=== PATIENT | female | born 2000 | race Caucasian/White ===

== ENCOUNTER 2022-12-11 02:10 | Emergency (ER) | payer MEDICAID, OTHER ==
[~2022-12-11] VITALS: Ht 178 cm; Wt 99.8 kg
--- NOTE | 2022-12-11 03:30 | ED General ---
General Chief Complaint: Substance Abuse Stated Complaint: POSS VOMITING BLOOD Nursing Triage Note: REPORTS "BLINKING OUT" FOR APPROX. 1HR. REPORTS COMSUMING 1 LARGE BOTTLE MALIBU OVER APPROX. 2HRS. REPORTS VOMITTING 3-4 TIMES. Allergies and Home Medications Allergies Coded Allergies: No Known Drug Allergies (Unverified , 12/11/22) Patient Home Medication List No Active Prescriptions or Reported Meds Past Wsuzdwn-[id number]-[id number] Hx Patient Social History Tobacco Use?: No Substance use?: No Alcohol Use?: Yes Alcohol type: Hard Liquor Alcohol Frequency: Once in a while Pt feels they are or have been: No Immunizations Up To Date First/Initial COVID19 Vaccinat: NA Past Medical History Surgery/Hospitalization HX: DENIES Physical Exam Vital Signs Vital Signs - First Documented 12/11/22 02:38 Temp 36.6 Pulse 103 Resp 16 B/P (MAP) 127/97 (107) Pulse Ox 98 O2 Delivery Room Air Capillary Refill : Less Than 3 Seconds Height, Weight, BMI Height: '" Weight: lbs. oz. kg; 31.00 BMI Method: Progress/Results/Core Measures Suspected Sepsis SIRS Temperature: Pulse: 103 Respiratory Rate: 16 Blood Pressure 127 /97 Mean: 107 Results/Orders Vital Signs/I&O 12/11/22 02:38 Temp 36.6 Pulse 103 Resp 16 B/P (MAP) 127/97 (107) Pulse Ox 98 O2 Delivery Room Air Capillary Refill : Less Than 3 Seconds Blood Pressure Mean: 107 Departure Impression Primary Impression: Acute alcoholic intoxication Disposition: 01 HOME, SELF-CARE Condition: Stable Departure-Patient Inst. Decision time for Depature: 03:29 Patient Instructions: Alcohol Intoxication ED Add. Discharge Instructions: CLEAR LIQUIDS--WATER, BROTH, JELLO, GATORADE BRATS DIET--BANANAS, RICE, APPLESAUCE, TOAST, SALTINES TYLENOL AND MOTRIN FOR PAIN RETURN TO ER IF YOU HAVE WORSENING OF SYMPTOMS All discharge instructions reviewed with patient and/or family. Voiced understanding. Scripts No Active Prescriptions or Reported Meds CHINYERE ADAMS DO Dec 11, 2022 03:30
[2022-12-11 03:32] VITALS: BP 133/76
== END 2022-12-11 03:34 | disposition home or self-care (01) ==
LOC: ER 02:13
DX: F10.129 Alcohol abuse with intoxication, unspecified (principal); Z28.310 Unvaccinated for COVID-19
CPT/HCPCS: 99281